=== PATIENT | male | born 1995 | race Caucasian/White ===

== ENCOUNTER 2017-01-15 17:28 | Emergency (ER) | payer OTHER ==
[~2017-01-15] VITALS: Ht 167.6 cm; Wt 54.5 kg
[2017-01-15 17:32] VITALS: BP 132/75
[2017-01-15] MEDS ORDERED: HYDROCODONE/ACETAMINOPHEN 5-325 MG TABLET PO ONE (19:45)
== END 2017-01-15 19:49 | disposition home or self-care (01) ==
LOC: EMS 17:31
DX: K02.9 Dental caries, unspecified (principal)
CPT/HCPCS: 99283